=== PATIENT | female | born 1985 | race Caucasian/White ===

== ENCOUNTER 2025-05-11 16:20 | Outpatient (CLI) | payer BC, SELFPAY ==
--- OUTSIDE RECORDS SUMMARY | 2025-05-11 16:24 | XMS_ITS | Clinical Summary ---
Author Organization Healthcare Address [address] [place] [address] Care Team Providers Care Paper Sheeter Name Role Phone Helder Robina Fraire APRN Primary Care Provider Immunizations Immunization Administration Dates Next Due PPD Skin Test (TB Skin Test) 11/19/2006,04/15/20 06 Social History Tobacco Use Types Packs/Day Years Used Date Smoking Tobacco: Never Assessed Comments Unknown Sex and Gender Information Value Date Recorded Sex Assigned at Not on file Legal Sex Female 8:27 PM EDT Gender Identity Not on file Sexual Orientation Not on file Last Filed Vital Signs Vital Sign Reading Time Taken Comments Blood Pressure - - Pulse - - Temperature - - Respiratory Rate - - Oxygen Saturation - - Inhaled Oxygen Concentration - - Weight 81.6 kg (180 lb) 09/17/2023 9:09 AM EST Height 162.6 cm (5' 4 ) 09/17/2023 9:09 AM EST Body Mass Index 30.9 09/17/2023 9:09 AM EST Plan of Treatment Health Maintenance Due Date Last Done Comments [facility]-Depression Screening 1984 [facility]-HIV Screening 1984 [facility]-Hepatitis C Screening 1984 [facility]-Infant/Child/Adol SDOH Screenings 1984 [facility]-Obesity Intervention 1990 [facility]-Varicella Vaccines (1 of 2 - 13+ 2-dose series) 1997 [facility]- SDOH Screenings 2002 [facility]-Adult SDOH Screenings 2002 [facility]-DTaP,Tdap,and Td Vaccine s (1 - Tdap) 2003 [facility]-Hepatitis B Vaccines (1 of 3 - 19+ 3-dose series) 2003 [facility]-Pap Smear 2005 HPV Vaccines (1 - 3-dose SCD M series) 2011 [facility]-Cervical Cancer Screening 2014 [facility]-HPV/Cotest 2014 [id number] Vaccine (1 - 20 24-25 season) 2025 [facility]-Influenza Vaccine (#1) 2025 [facility]-Zoster Vaccines (1 of 2) 2034 [facility]-HIB Vaccines Aged Out No longer e ligible based on patient's age to complete this topic [facility]-Hepatitis A Vaccines Aged Out No longer eligible based on patient's age to complete this topic [facility]-IPV Vaccines Aged Out No longer e ligible based on patient's age to complete this topic [facility]-Pneumococcal Vaccine: Pediatrics (0 to 5 Years) and At-Risk Patients (6 to 49 Years) Aged Out No long er eligible based on patient's age to complete this topic [facility]-Rotavirus Vaccines Aged Out No lo nger eligible based on patient's age to complete this topic Insurance JESSICA Care Teams Paper Sheeter Relationship Specialty Start Date End Date Robina Pendleton APRN [address] [place] [address] PCP - General Family Medicine 09/17/23
--- OUTSIDE RECORDS SUMMARY | 2025-05-11 16:24 | XMS_ITS | Encounter Summary ---
[facility] [address] [place] [address] Care Team Providers Care Peanut Cleaner Name Role Phone Robina Pendleton APRN Primary Care Provider Reason for Visit * Reason Comments Med Refill Encounter Details Date Type Department Care Team (Late st Contact Info) Description 05/04/2025 Refill [facility] FAM[facility] MED[facility]INE [address] [place] [address] Robina Pendleton APRN [address] [place] [address] Attention deficit hyperactivity disorder (ADHD), combined type Social History Tobacco Use Types Packs/Day Years Used Date Smoking Tobacco: Never Smokeless Tobacco: Never Alcohol Use Standard Drinks/Week Comments Not Currently 0 (1 standard drink = 0.6 oz pur e alcohol) Roxana Depression Scale Answer Date Recorded Roxana Depression Scale Total 4 07/10/2021 The thought of harming myself has occurred to me . Never 07/10/2021 Abuse Screen Answer Date Recorded Feels Unsafe at Home or Work/School no 06/11/2024 Feels Threatened by Someone no 05/26 Does Anyone Try to Keep You From Having Contact with Others or Doing Things Outside Your Home? no 06/11/2024 Physical Signs of Abuse Present no 06/11/2024 PHQ-2 Answer Date Recorded Patient Health Questionnaire-2 Score 0 03/03/2025 Comments No Sex and Gender Information Value Date Recorded Sex Assigned at Female 02/25/2025 10:48 PM EDT Legal Sex Female 1:54 PM EDT Gender Identity Not on file Sexual Orientation Not on file Occupation Industry Job Start Date Job End Date TEACHER Not on file Not on file Not on file documented as of this encounter Plan of Treatment Not on file documented as of this encounter Visit Diagnoses Diagnosis Attention deficit hyperactivity disorder (ADHD), combined type documented in this encounter Additional Health Concerns Infection Onset Date Last Indicated Resolved Time 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
--- OUTSIDE RECORDS SUMMARY | 2025-05-11 16:24 | XMS_ITS | Encounter Summary ---
[facility] [address] [place] [address] Care Team Providers Care Contracts Intern Name Role Phone Robina Pendleton APRN Primary Care Provider Reason for Visit * Reason Onset Date Comments [place] 03/04/2025 Encounter Details Date Type Department Care Team (Late st Contact Info) Description 03/04/2025 Telephone [facility] FAM[facility] MEDICINE [address] [place] [address] Robina Pendleton APRN [address] [place] [address] [place] Social History Tobacco Use Types Packs/Day Years Used Date Smoking Tobacco: Never Smokeless Tobacco: Never Alcohol Use Standard Drinks/Week Comments Not Currently 0 (1 standard drink = 0.6 oz pur e alcohol) [place] Depression Scale Answer Date Recorded [place] Depression Scale Total 4 07/10/2021 The thought [...] on file documented as of this encounter Miscellaneous Notes * Telephone Encounter - Stella Alatorre MA - 03/29/2025 11:46 AM EDT APPROVED AND FAXED TO PHARMACY. PT NOTIFIED VIA [employer]. * Telephone Encounter - Stella Alatorre MA - 03/29/2025 11:18 AM EDT [place]: [id number] Sent to Plan Wait for Determination Please wait for [facility] 2017 to return a determination Answered questions. Attached last office note. Pending. * Telephone Encounter - Stella Alatorre MA - 03/04/2025 2:10 PM EDT Insurance requiring [employer] as it's forumlary or documentation of why patient cannot use it. 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
--- OUTSIDE RECORDS SUMMARY | 2025-05-11 16:24 | XMS_ITS | Clinical Summary ---
[facility] Organization [facility] Address [address] [place] [id number] Care Team Providers Care Brake Specialist Name Role Phone Robina Pendleton APRN Primary Care Provider Allergies Active Allergy Reactions Criticality Noted Date Comments Ciprofloxacin Other (See Comments) 06/11/2024 Medications ibuprofen (ADVIL,MOTRIN) 600 MG tablet Take 1 tablet by mouth Every 6 (Six) Hours. 30 tablet 1 1:02 PM EDT 05/27/20 21 Active albuterol sulfate HFA 108 (90 Base) MCG/ACT inhalerIndicatio ns:Acute cough TAKE 2 PUFFS BY MOUTH EVERY 4 HOURS NEEDED FOR WHEEZE 6.7 g 10/17/19 24 Active sertraline (ZOLOFT) 50 MG tabletIndication s:LAVIN (generalized anxiety disorder) Take 1 tablet by mouth Daily. 90 tablet 1 03/03/20 25 Active phentermine (ADIPEX-P) 37.5 MG tabletIndication s:Class 1 obesity without serious comorbidity with body mass index (BMI) of 33.0 to 33.9 in adult, unspecified obesity type Take 1 tablet by mouth Every Morning Before Breakfast. 30 tablet 03/03/20 25 Active Cholecalciferol (Vitamin D3) 1.25 MG (55711 UT) capsuleIndicatio ns:Vitamin D deficiency Take 1 capsule by mouth Every 7 (Seven) Days. 13 capsule 1 03/04/20 25 Active Semaglutide-Weig ht Management (Wegovy) 0.25 MG/0.5ML solution auto-injectorInd ications:Class 1 obesity without serious comorbidity with body mass index (BMI) of 33.0 to 33.9 in adult, unspecified obesity type Inject 0.5 mL under the skin into the appropriate area as directed 1 (One) Time Per Week. 2 mL 03/27/20 Active atomoxetine (STRATTERA) 40 MG capsuleIndicatio ns:Attention deficit hyperactivity disorder (ADHD), combined type TAKE 1 CAPSULE BY MOUTH EVERY DAY 30 capsule 1 05/04/20 25 Active atomoxetine (Strattera) 40 MG capsuleIndicatio ns:Attention deficit hyperactivity disorder (ADHD), combined type Take 1 capsule by mouth Daily. 30 capsule 1 03/03/20 25 2024 Discontinued Active Problems Problem Noted Date Diagnosed Date follow-up 05/29/2021 Previous delivery affecting 0 03/15/2018 Overview (02/01/2021): First for failure to progress Resolved Problems Problem Noted Date Diagnosed Date Resolved Date fever 05/29/2021 05/31/2021 Overview (05/29/2021): Exam negative except for minimal uterine tenderness, we will give a dose of Rocephin today and repeat again in 24 hours if needed 38 weeks gestation of 05/15/2021 05/27/2021 Sterilization consult 05/15/20212020 Overview (05/15/2021): Patient wants tubal sterilization at time of 37 weeks gestation of 05/08/2021 05/15/2021 False labor 05/08/2021 05/27/2021 35 weeks gestation of 04/24/2021 05/08/2021 33 weeks gestation of 04/10/2021 05/08/2021 Pustule 04/10/2021 05/27/2021 Overview (04/10/2021): Pustules under both breasts, treat with Bactroban 27 weeks gestation of 03/01/2021 04/10/2021 23 weeks gestation of 02/01/2021 04/10/2021 Multigravida of advanced mat ernal age in second trimester 01/02/2021 05/27/2021 13 weeks gestation of 11/21/2020 02/01/2021 Previous miscarriage without 10/10/2020 02/01/2021 Missed 05/30/2020 02/01/2021 Missed 05/11/2020 02/01/2021 Overview (05/11/2020): 7-9 week pole Post-dates 06/27/2016 016 Encounters Date Type Department Care Team Description 05/04/2025 Refill [facility] [address] [place] [address] Robina Pendleton APRN Attention deficit hyperactivity disorder (ADHD), combined type 03/04/2025 Results Follow-Up [facility] [address] [place] [address] Robina Pendleton APRN 03/04/2025 Telephone [facility] [address] [place] [address] Robina Pendleton APRN [employer] [place] 03/03/2025 10:00 AM EDT Office Visit [facility] [address] [place] [address] Robina Pendleton APRN Annual physical exam (Primary Dx); ALVIN (generalized anxiety disorder); Liver hemangioma; Class 1 obesity without serious comorbidity with body mass index (BMI) of 33.0 to 33.9 in adult, unspecified obesity type; Attention deficit hyperactivity disorder (ADHD), combined type 03/03/2025 Travel from Last 3 Months Immunizations Immunization Administration Dates Next Due COVID-19 (UNSPECIFIED) 08/26/2021 PPD Test 11/19/2006,04/15/2006 Tdap 03/22/2015,08/26/2014 Tetanus 12/01/1999 Tetanus Toxoid 12/01/1999 Family History Medical History Relation Name Comments No Known Problems Brother No Known Problems Father Liver disease Mother Non-alcoholic fatty liver disease Diabetes type II Other Aunt No Known Problems Sister Relation Name Status Comments Brother Alive Father Alive Mother Alive Other Sister Alive Social History Tobacco Use Types Packs/Day Years Used Date Smoking Tobacco: Never Smokeless Tobacco: Never Alcohol Use Standard Drinks/Week Comments Not Currently 0 (1 standard drink = 0.6 oz pur e alcohol) Swink Depression Scale Answer Date Recorded Swink Depression Scale Total 4 07/10/2021 The thought [...] file Not on file Not on file Last Filed Vital Signs Vital Sign Reading Time Taken Comments Blood Pressure 124/82 03/03/2025 9:51 AM EDT Pulse 72 03/03/2025 9:51 AM EDT Temperature 37.1 C (98.7 F) 03/03/2025 9:51 AM EDT Respiratory Rate 16 03/03/2025 9:51 AM EDT Oxygen Saturation 98% 03/03/2025 9:51 AM EDT Inhaled Oxygen Concentration - - Weight 90.2 kg (198 lb 12.8 oz) 03/03/2025 9:51 AM EDT Height 163 cm (5' 4.17 ) 03/03/2025 9:51 AM EDT Body Mass Index 33.94 03/03/2025 9:51 AM EDT Plan of Treatment Health Maintenance Due Date Last Done Comments Annual Gynecologic Pelvic and Breast Exam 07/11/2022 07/10/2021, 05/30/2020 TDAP/TD VACCINES (3 - Td or Tdap) 03/22/2025 03/22/2015, 08/26/2014 INFLUENZA VACCINE 03/26/2025 COVID-19 Vaccine ( season) 2025 08/26/2021 ANNUAL PHYSICAL 03/03/2026 03/03/2025, 02/19/2023 MAMMOGRAM 11/05/2026 11/05/2024, 10/22/2024 PAP SMEAR 02/04/2028 02/03/2025 (Patient-Reported (Performed Externally)), 07/10/2021, 06/09/2020, Additional history exists HEPATITIS C SCREENING Completed 10/10/2020 Pneumococcal Vaccine 0-49 Aged Out No longer eligible based on patient's age to complete this topic Procedures Procedure Name Priority Date/Time Associated Diagnosis Comments CBC AND DIFFERENTIAL Routine 03/03/2025 10:42 AM EDT ALVIN (generalized anxiety disorder) Class 1 obesity without serious comorbidity with body mass index (BMI) of 33.0 to 33.9 in adult, unspecified obesity type Annual physical exam VITAMIN B12 AND FOLATE Routine 10:42 AM EDT Class 1 obesity without serious comorbidity with body mass index (BMI) of 33.0 to 33.9 in adult, unspecified obesity type Annual physical exam VITAMIN D,25-HYDROXY Routine 03/03/2025 10:42 AM EDT Class 1 obesity without serious comorbidity with body mass index (BMI) of 33.0 to 33.9 in adult, unspecified obesity type Annual physical exam TSH Routine 03/03/2025 10:42 AM EDT Class 1 obesity without serious comorbidity with body mass index (BMI) of 33.0 to 33.9 in adult, unspecified obesity type Annual physical exam T4, FREE Routine 03/03/2025 10:42 AM EDT Class 1 obesity without serious comorbidity with body mass index (BMI) of 33.0 to 33.9 in adult, unspecified obesity type Annual physical exam LIPID PANEL Routine 03/03/2025 10:42 AM EDT Class 1 obesity without serious comorbidity with body mass index (BMI) of 33.0 to 33.9 in adult, unspecified obesity type Annual physical exam HEMOGLOBIN A1C Routine 03/03/2025 10:42 AM EDT Class 1 obesity without serious comorbidity with body mass index (BMI) of 33.0 to 33.9 in adult, unspecified obesity type Annual physical exam COMPREHENSIVE METABOLIC PANEL Routine 03/03/2025 10:42 AM EDT ALVIN (generalized anxiety disorder) Liver hemangioma Class 1 obesity without serious comorbidity with body mass index (BMI) of 33.0 to 33.9 in adult, unspecified obesity type Annual physical exam MAMMO DIAGNOSTIC DIGITAL TOMOSYNTHESIS RIGHT W CAD Routine 11/05/2024 9:18 AM EDT Abnormal mammogram SCANNED - PAP SMEAR 07/10/2021 OBSTETRIC PANEL Routine 10/10/2020 9:48 AM EST Less than 8 weeks gestation of from Last 3 Months or Most Recently Relevant to Health Maintenance Results * Vitamin B12 & Folate (03/03/2025 10:42 AM EDT) Vitamin B-12 499 211 - 946 pg/mL [facility] Comment:Results may be false ly increased if patient taking Biotin. Folate 9.23 4.78 - 24.20 ng/mL [facility] Comment:Results may be false ly increased if patient taking Biotin. Blood 03/03/2025 10:4 2 AM EDT 03/03/2025 Narrative [facility] ([facility]) - 03/04/2025 3:07 AM EDT Performed at: [address] [place] [address] [id number] Sld Teacher: Josh Ugarte MD, Phone: [phone] Patient Fasting: Y us Robina Pendleton APRN LAB BLOOD ORDERABLES Final R esult [facility] ([facility]) [address] [place] [address], [facility] [address] [place] [address], [place] [phone] * (ABNORMAL) Vitamin D,25-Hydroxy (03/03/2025 10:42 AM EDT) [facility] 25 Hydroxy, Vitamin D 28.7(L) 30.0 - 100.0 ng/ml [facility] Comment: Reference Range for Total Vitamin D 25(OH) Deficiency <20.0 ng/mL Insufficiency 21-29 ng/mL Sufficiency 30-100 ng/mL Toxicity >100 ng/ml Blood 03/03/2025 10:4 2 AM EDT 03/03/2025 Narrative [facility] (AMBULATORY) - 03/04/2025 3:07 AM EDT Performed at: [address] [place] [address] [id number] Sld Teacher: Josh Ugarte MD, Phone: [phone] Patient Fasting: Y Robina Pendleton APRN LAB BLOOD ORDERABLES Final R esult [facility] (AMBULATORY) [address] [place] [address], [place] [phone] [facility] [address] [place] [address], [place] [phone] * (ABNORMAL) CBC & Differential (03/03/2025 10:42 AM EDT) [facility] WBC 7.97 3.40 - 10.80 10*3/mm3 [facility] RBC 4.75 3.77 - 5.28 10*6/mm3 [facility] Hemoglobin 13.5 12.0 - 15.9 g/dL [facility] Hematocrit 40.9 34.0 - 46.6 % [facility] MCV 86.1 79.0 - 97.0 fL [facility] MCH 28.4 26.6 - 33.0 pg [facility] MCHC 33.0 31.5 - 35.7 g/dL [facility] RDW 12.9 12.3 - 15.4 % [facility] Platelets 325 140 - 450 10*3/mm3 [facility] Neutrophil Rel % 63.1 42.7 - 76.0 % [facility] Lymphocyte Rel % 25.6 19.6 - 45.3 % [facility] Monocyte Rel % 7.0 5.0 - 12.0 % [facility] Eosinophil Rel % 2.6 0.3 - 6.2 % [facility] Basophil Rel % 0.6 0.0 - 1.5 % [facility] Neutrophils Absolute 5.02 1.70 - 7.00 10*3/mm3 [facility] Lymphocytes Absolute 2.04 0.70 - 3.10 10*3/mm3 [facility] Monocytes Absolute 0.56 0.10 - 0.90 10*3/mm3 [facility] Eosinophils Absolute 0.21 0.00 - 0.40 10*3/mm3 [facility] Basophils Absolute 0.05 0.00 - 0.20 10*3/mm3 [facility] Immature Granulocyte Rel % 1.1(H) 0.0 - 0.5 % [facility] Immature Grans Absolute 0.09(H) 0.00 - 0.05 10*3/mm3 [facility] nRBC 0.0 0.0 - 0.2 /100 WBC [facility] Blood 03/03/2025 10:4 2 AM EDT 03/03/2025 Narrative [facility] ([facility]) - 03/04/2025 3:07 AM EDT Performed at: [address] [place] [address] [id number] Sld Teacher: Josh Ugarte MD, Phone: [phone] Patient Fasting: Y us Robina Pendleton APRN LAB BLOOD ORDERABLES Final R esult [facility] ([facility]) [address] [place] [address], [facility] [address] [place] [address], * TSH (03/03/2025 10:42 AM EDT) [facility] TSH 3.070 0.270 - 4.200 uIU/mL [facility] Blood 03/03/2025 10:4 2 AM EDT 03/03/2025 Narrative [facility] ([facility]) - 03/04/2025 3:07 AM EDT Performed at: [address] [place] [address] [id number] Sld Teacher: Josh Ugarte MD, Phone: [phone] Patient Fasting: Y Robina Pendleton GUN STOCK CHECKER LAB BLOOD ORDERABLES Final R esult Performing Organization Address [facility] de Phone Number [facility] ([facility]) [address] [place] [address], [facility] [address] [place] [address], * (ABNORMAL) T4, Free (03/03/2025 10:42 AM EDT) Free T4 0.86(L) 0.92 - 1.68 ng/dL [facility] Blood 03/03/2025 10:4 2 AM EDT 03/03/2025 Narrative [facility] ([facility]) - 03/04/2025 3:07 AM EDT Performed at: [address] [place] [address] [id number] Sld Teacher: Josh Ugarte MD, Phone: [phone] Patient Fasting: Y Robina Pendleton GUN STOCK CHECKER LAB BLOOD ORDERABLES Final R esult Performing Organization Address [facility] de Phone Number [facility] ([facility]) [address] [place] [address], [facility] [address] [place] [address], * Hemoglobin A1c (03/03/2025 10:42 AM EDT) Hemoglobin A1C 5.30 4.80 - 5.60 % [facility] Comment: Hemoglobin A1C Ranges: Increased Risk for Diabetes 5.7% to 6.4% Diabetes >= 6.5% Diabetic Goal < 7.0% Blood 03/03/2025 10:4 2 AM EDT 03/03/2025 Narrative [facility] ([facility]) - 03/04/2025 3:07 AM EDT Performed at: [address] [place] [address] [place], [place] [id number] Sld Teacher: Josh Ugarte MD, Phone: [phone] Patient Fasting: Y Robina Pendleton APRN LAB BLOOD ORDERABLES Final R esult [facility] ([facility]) [address] [place] [address], [facility] [address] [place] [address], * (ABNORMAL) Lipid Panel (03/03/2025 10:42 AM EDT) [facility] Total Cholesterol 198 0 - 200 mg/dL [facility] Comment: Cholesterol Reference Ranges (U.S. Department of Health and Human Services ATP III Classifications) Desirable <200 mg/dL Borderline High 200-239 mg/dL High Risk >240 mg/dL Triglyceride Reference Ranges (U.S. Department of Health and Human Services ATP III Classifications) Normal <150 mg/dL Borderline High 150-199 mg/dL High 200-499 mg/dL Very High >500 mg/dL HDL Reference Ranges (U.S. Department of Health and Human Services ATP III Classifications) Low <40 mg/dl (major risk factor for CHD) High >60 mg/dl ('negative' risk factor for CHD) LDL Reference Ranges (U.S. Department of Health and Human Services ATP III Classifications) Optimal <100 mg/dL Near Optimal 100-129 mg/dL Borderline High 130-159 mg/dL High 160-189 mg/dL Very High >189 mg/dL LDL is calculated using the NIH LDL-C calculation. Triglycerides 147 0 - 150 mg/dL [facility] HDL Cholesterol 38(L) 40 - 60 mg/dL [facility] VLDL Cholesterol Silver 27 5 - 40 mg/dL [facility] LDL Chol Calc (NIH) 133(H) 0 - 100 mg/dL [facility] Blood 03/03/2025 10:4 2 AM EDT 03/03/2025 Narrative [facility] ([facility]) - 03/04/2025 3:07 AM EDT Performed at: [address] [place] [address] [place] [id number] Sld Teacher: Josh Ugarte MD, Phone: [phone] Patient Fasting: Y Robina Pendleton APRN LAB BLOOD ORDERABLES Final R esult [facility] ([facility]) [address] [place] [address], [facility] [address] [place] [address], * (ABNORMAL) Comprehensive Metabolic Panel (03/03/2025 10:42 AM EDT) [facility] Glucose 86 65 - 99 mg/dL [facility] BUN 6.0 6.0 - 20.0 mg/dL [facility] Creatinine 0.79 0.57 - 1.00 mg/dL [facility] EGFR Result 97.1 >60.0 mL/min/1.7 3 [facility] Comment: GFR Categories in Chronic Kidney Disease (CKD) GFR Category GFR (mL/min/1.73) Interpretation G1 90 or greater Normal or high (1) G2 60-89 Mild decrease (1) G3a 45-59 Mild to moderate decrease G3b 30-44 Moderate to severe decrease G4 15-29 Severe decrease G5 14 or less Kidney failure (1)In the absence of evidence of kidney disease, neither GFR category G1 or G2 fulfill the criteria for CKD. eGFR calculation 2020 CKD-EPI creatinine equation, which does not include race as a factor BUN/Creatinine Ratio 7.6 7.0 - 25.0 [facility] Sodium 138 136 - 145 mmol/L [facility] Potassium 4.2 3.5 - 5.2 mmol/L [facility] Chloride 103 98 - 107 mmol/L [facility] Total CO2 24.6 22.0 - 29.0 mmol/L [facility] Calcium 9.6 8.6 - 10.5 mg/dL [facility] Total Protein 7.4 6.0 - 8.5 g/dL [facility] Albumin 4.3 3.5 - 5.2 g/dL [facility] Globulin 3.1 gm/dL [facility] A/G Ratio 1.4 g/dL [facility] Total Bilirubin 0.6 0.0 - 1.2 mg/dL [facility] Alkaline Phosphatase 89 39 - 117 U/L [facility] AST (SGOT) 57(H) 1 - 32 U/L [facility] ALT (SGPT) 56(H) 1 - 33 U/L [facility] Blood 03/03/2025 10:4 2 AM EDT 03/03/2025 Narrative [facility] ([facility]) - 03/04/2025 3:07 AM EDT Performed at: [address] [place] [address] [id number] Sld Teacher: Josh Ugarte MD, Phone: [phone] Patient Fasting: Y Robina Pendleton APRN LAB BLOOD ORDERABLES Final R esult [facility] ([facility]) [address] [place] [id number], [facility] [address] [place] [address], * Mammo Diagnostic Digital Tomosynthesis Right With CAD (11/05/2024 9:18 AM EDT) Anatomical Region Laterality Modality Breast Right Mammography 11/05/2024 9:44 AM EDT Impressions 11/05/2024 9:45 AM EDT BI-RADS 2, benign findings. RECOMMENDATION: Annual routine screening mammography is advised. The standard false-negative rate of mammography is between 10% and 25%. Complex patterns or increased breast density will markedly elevate the false-negative rate of mammography. A results letter, in lay terminology, will be given to the patient at the conclusion of the exam. 11/05/2024 9:[address] Benito Pyle MD on Narrative 11/05/2024 9:45 AM EDT EXAMINATION:MAMMO DIAGNOSTIC DIGITAL TOMOSYNTHESIS RIGHT W CAD-, US BREAST RIGHT LIMITED- HISTORY: 39-year-old female with a mass in the right breast on screening mammography. Further evaluation. TECHNIQUE: Right 2D and 3D ML, spot compression MLO, spot compression cc views were obtained. CAD was utilized. Targeted right breast ultrasound was performed. COMPARISON: 10/22/2024. FINDINGS: There are scattered areas of fibroglandular density. A mass is noted in the right breast at 11:00, 3 cm from the nipple, which corresponds with the screening mammographic finding. Otherwise, no worrisome masses, calcifications, or architectural distortion is identified in the right breast. Targeted right breast ultrasound was performed at 11:00, 3 cm from the nipple, demonstrating an 8 x 3 x 5 mm cyst which is in continuity with the duct. No internal vascularity or suspicious features are noted. This corresponds with the mammographic finding. Ora Jacobson MD [facility] MAMMOGRAPHY ORDERABLES Final Result * SCANNED - PAP SMEAR (07/10/2021) Bobby Madrid MD CHART REVIEW TABS Final Result * (ABNORMAL) Obstetric Panel (10/10/2020 9:48 AM EST) Hepatitis B Surface Ag Negative Negative [facility] Hep C Virus Ab <0.1 0.0 - 0.9 s/co ratio [facility] Comment: Negative: < 0.8 Indeterminate: 0.8 - 0.9 Positive: > 0.9 The CDC recommends that a positive HCV antibody result be followed up with a HCV Nucleic Acid Amplification test (045145). RPR Non Reactive Non Reactive [facility] Rubella Antibodies, IgG 4.26 Immune >0.99 index [facility] Comment: Non-immune <0.90 Equivocal 0.90 - 0.99 Immune >0.99 ABO Type O [facility] Rh Factor Positive [facility] Comment: Please note: Prior records for this patient's ABO / Rh type are not available for additional verification. Antibody Screen Negative Negative [facility] WBC 11.1(H) 3.4 - 10.8 x10E3/uL [facility] RBC 4.49 3.77 - 5.28 x10E6/uL [facility] Hemoglobin 13.1 11.1 - 15.9 g/dL [facility] Hematocrit 38.9 34.0 - 46.6 % [facility] MCV 87 79 - 97 fL [facility] MCH 29.2 26.6 - 33.0 pg [facility] MCHC 33.7 31.5 - 35.7 g/dL [facility] RDW 13.1 11.7 - 15.4 % [facility] Platelets 307 150 - 450 x10E3/uL [facility] Neutrophil Rel % 75 Not Estab. % [facility] Lymphocyte Rel % 17 Not Estab. % [facility] Monocyte Rel % 5 Not Estab. % [facility] Eosinophil Rel % 1 Not Estab. % [facility] Basophil Rel % 1 Not Estab. % [facility] Neutrophils Absolute 8.5(H) 1.4 - 7.0 x10E3/uL [facility] Lymphocytes Absolute 1.9 0.7 - 3.1 x10E3/uL [facility] Monocytes Absolute 0.6 0.1 - 0.9 x10E3/uL [facility] Eosinophils Absolute 0.1 0.0 - 0.4 x10E3/uL [facility] Basophils Absolute 0.1 0.0 - 0.2 x10E3/uL [facility] Immature Granulocyte Rel % 1 Not Estab. 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 03/29/2021 Insurance [employer] Advance Directives * CPR (Attempt to Resuscitate) (Latest Code Status on File) Date Activated Date Inactivated Comments 05/25/2021 12:01 PM 05/27/2021 4:59 PM Question Answer Comments Code Status (Patient has no pulse and is not breathing): CPR (Attempt to Resuscitate) Medical Interventions (Patie nt has pulse or is breathing): Full * CPR (Attempt to Resuscitate) Date Activated Date Inactivated Comments 05/25/2021 7:39 AM 05/25/2021 12:01 PM Question Answer Comments Code Status (Patient has no pulse and is not breathing): CPR (Attempt to Resuscitate) Medical Interventions (Patie nt has pulse or is breathing): Full Level Of Support Discussed With: Patient * CPR (Attempt to Resuscitate) Date Activated Date Inactivated Comments 03/15/2018 9:01 PM 03/18/2018 3:54 PM Question Answer Comments Code Status (Patient has no pulse and is not breathing): CPR (Attempt to Resuscitate) Medical Interventions (Patie nt has pulse or is breathing): Full * CPR (Attempt to Resuscitate) Date Activated Date Inactivated Comments 03/15/2018 5:19 AM 03/15/2018 9:01 PM Question Answer Comments Code Status (Patient has no pulse and is not breathing): CPR (Attempt to Resuscitate) Medical Interventions (Patie nt has pulse or is breathing): Full * Full Code Date Activated Date Inactivated Comments 06/28/2016 12:17 AM 06/30/2016 2:12 PM Care Teams Brake Specialist Relationship Specialty Start Date End Date Robina Pendleton APRN [address] [place] [address] PCP - General Nurse Practitioner 09/20/23
== END 2025-05-11 23:59 | disposition home or self-care (01) ==
LOC: LAB 16:22
PROVIDERS: PCP Nurse Practitioner Family; Visit Provider Internal Medicine Gastroenterology
DX: K74.69 Other cirrhosis of liver (principal); B19.20 Unspecified viral hepatitis C without hepatic coma; R74.01 Elevation of levels of liver transaminase levels

== ENCOUNTER 2025-05-12 07:26 | Outpatient (CLI) | payer BC, SELFPAY ==
--- OUTSIDE RECORDS SUMMARY | 2025-05-12 07:30 | XMS_ITS | Clinical Summary ---
[facility] Address [address] [place] [id number] Care Team Providers Care Mold Sprayer Name Role Phone Robina Pendleton APRN Primary Care Provider [phone] Allergies Active Allergy Reactions Criticality Noted Date [...] 24 Active sertraline (ZOLOFT) 50 MG tabletIndication s:ALVIN (generalized anxiety disorder) Take 1 tablet by mouth Daily. 90 tablet 1 03/03/20 25 Active phentermine (ADIPEX-P) 37.5 MG tabletIndication s:Class 1 obesity without serious comorbidity with body mass index (BMI) of 33.0 to 33.9 in adult, unspecified obesity type Take 1 tablet by mouth Every Morning Before Breakfast. 30 tablet 03/03/20 25 Active Cholecalciferol (Vitamin D3) 1.25 MG (66876 UT) capsuleIndicatio ns:Vitamin D deficiency Take 1 [...] Type Department Care Team Description 05/04/2025 Refill [facility] [address] [place] [address] Robina Pendleton APRN Attention deficit hyperactivity disorder (ADHD), combined type 03/04/2025 Results Follow-Up [facility] [address] [place] [address] Robina Pendleton APRN 03/04/2025 Telephone [facility] [address] [address] Robina Pendleton APRN [place] 03/03/2025 10:00 AM EDT Office Visit [facility] [address] [address] Robina Pendleton APRN Annual physical exam (Primary [...] drink = 0.6 oz pur e alcohol) Dalton Depression Scale Answer Date Recorded [place] Depression Scale Total 4 07/10/2021 The thought [...] - 03/04/2025 3:07 AM EDT Performed at: [address] [place] [address] [id number] Thermoscrew Operator: Josh Ugarte MD, Phone: [phone] Patient Fasting: Y us Robina Pendleton APRN LAB BLOOD ORDERABLES Final R esult [facility] ([facility]BULATORY) [address] [place] [address], [facility] [address] [place] [address], [place] [phone] * (ABNORMAL) Vitamin D,25-Hydroxy (03/03/2025 10:42 AM EDT) [facility] 25 Hydroxy, Vitamin D 28.7(L) 30.0 - 100.0 ng/ml [facility] Comment: Reference Range for Total Vitamin D 25(OH) Deficiency <20.0 ng/mL Insufficiency 21-29 ng/mL Sufficiency 30-100 ng/mL Toxicity >100 ng/ml Blood 03/03/2025 10:4 2 AM EDT 03/03/[address] [facility] (AMBULATORY) - 03/04/2025 3:07 AM EDT Performed at: [address] [place] [address] [id number] Thermoscrew Operator: Josh Ugarte MD, Phone: [phone] Patient Fasting: Y Robina Pendleton APRN LAB BLOOD ORDERABLES Final R esult [facility] (AMBULATORY) [address] [place] [address], [place] [phone] [facility] [address] [place] [address], [place] [phone] * (ABNORMAL) CBC & Differential (03/03/2025 10:42 AM EDT) [facility] WBC 7.97 3.40 - 10.80 10*3/mm3 [facility] [...] - 03/04/2025 3:07 AM EDT Performed at: [address] [place] [address] [id number] Thermoscrew Operator: Josh Ugarte MD, Phone: [phone] Patient Fasting: Y us Robina Pendleton APRN LAB BLOOD ORDERABLES Final R esult [facility] ([facility]UL[facility]) [address] [place] [address], [facility] [address] [place] [address], * TSH (03/03/2025 10:42 AM EDT) [facility] TSH 3.070 0.270 - 4.200 uIU/mL [facility] Blood 03/03/2025 10:4 2 AM EDT 03/03/2025 Narrative [facility] ([facility]UL[facility]) - 03/04/2025 3:07 AM EDT Performed at: [address] [place] [address] [id number] Thermoscrew Operator: Josh Ugarte MD, Phone: [phone] Patient Fasting: Y Robina Pendleton BEFORE SCHOOL LAB BLOOD ORDERABLES Final R esult Performing Organization Address [facility] de Phone Number [facility] ([facility]BULAT[facility]) [address] [place] [address], [facility] [address] [place] [address], * (ABNORMAL) T4, Free (03/03/2025 10:42 AM EDT) Free T4 0.86(L) 0.92 - 1.68 ng/dL [facility] Blood 03/03/2025 10:4 2 AM EDT 03/03/2025 Narrative [facility] ([facility]UL[facility]) - 03/04/2025 3:07 AM EDT Performed at: [address] [place] [address] [id number] Thermoscrew Operator: Josh Ugarte MD, Phone: [phone] Patient Fasting: Y Robina Pendleton BEFORE SCHOOL LAB BLOOD ORDERABLES Final R esult Performing Organization Address [facility] Co de Phone Number [facility] (AMBUL[facility]) [address] [place] [address], [facility] [address] [place] [address], * Hemoglobin A1c (03/03/2025 10:42 AM EDT) Hemoglobin A1C 5.30 4.80 - 5.60 % [facility] Comment: Hemoglobin A1C Ranges: Increased Risk for Diabetes 5.7% to 6.4% Diabetes >= 6.5% Diabetic Goal < 7.0% Blood 03/03/2025 10:4 2 AM EDT 03/03/2025 Narrative [facility] ([facility]) - 03/04/2025 3:07 AM EDT Performed at: [address] [place] [address] [place] [id number] Thermoscrew Operator: Josh Ugarte MD, Phone: [phone] Patient Fasting: Y Robnia Pendleton APRN LAB BLOOD ORDERABLES Final R esult [facility] ([facility]) [address] [place] [address], [facility] [address] [place] [address], * (ABNORMAL) Lipid Panel (03/03/2025 10:42 AM EDT) [facility] Total Cholesterol 198 0 - 200 mg/dL [...] - 03/04/2025 3:07 AM EDT Performed at: [address] [place] [address] [place] [id number] Thermoscrew Operator: Josh Ugarte MD, Phone: [phone] Patient Fasting: Y Robina Pendleton APRN LAB BLOOD ORDERABLES Final R esult [facility] ([facility]) [address] [place] [address], [facility] [address] [place] [address], * (ABNORMAL) Comprehensive Metabolic Panel (03/03/2025 10:42 AM EDT) [facility] Glucose 86 65 - 99 mg/dL [facility] [...] - 03/04/2025 3:07 AM EDT Performed at: [address] [place] [address] [id number] Thermoscrew Operator: Josh Ugarte MD, Phone: [phone] Patient Fasting: Y Robina Pendleton APRN LAB BLOOD ORDERABLES Final R esult [facility] ([facility]) [address] [place] [id number], [facility] [address] [place] [address], * Mammo Diagnostic Digital Tomosynthesis Right With [...] with the mammographic finding. Ora Jacobson MD [facility] MAMMOGRAPHY ORDERABLES Final Result * [...] with a HCV Nucleic Acid Amplification test ([id number]). 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
--- OUTSIDE RECORDS SUMMARY | 2025-05-12 07:30 | XMS_ITS | Clinical Summary ---
Author Organization Healthcare Address [address] [place] [address] Care Team Providers Care Vc++ Developer Name Role Phone Helder Robina Fraire APRN [...] 2011 [facility]-Cervical Cancer Screening 2014 [facility]-HPV/Cotest 2014 AAV-UVSBZ-13 Vaccine (1 - 20 24-25 season) 2025 [...] complete this topic Insurance JESSICA Care Teams Vc++ Developer Relationship Specialty Start Date End Date Robina Pendleton APRN [address] [place] [address] PCP - General Family Medicine 09/17/23
--- OUTSIDE RECORDS SUMMARY | 2025-05-12 07:30 | XMS_ITS | Encounter Summary ---
Author Organization [facility] Address [address] [place] [address] Care Team Providers Care Silverware Cleaner Name Role Phone Robina Pendleton APRN Primary Care Provider Reason for Visit * Reason Comments Med Refill Encounter Details Date Type Department Care Team (Late st Contact Info) Description 05/04/2025 Refill [facility] [address] [place] [address] Robina Pendleton APRN [address] [place] [address] Attention deficit hyperactivity disorder (ADHD), combined type Social History Tobacco Use Types Packs/Day Years Used Date Smoking Tobacco: Never Smokeless Tobacco: Never Alcohol Use Standard Drinks/Week Comments Not Currently 0 (1 standard drink = 0.6 oz pur e alcohol) [place] Depression Scale Answer Date Recorded [place] Depression Scale Total 4 07/10/2021 The thought [...] documented as of this encounter Care Teams Silverware Cleaner Relationship Specialty Start Date End Date Robina Pendleton APRN [address] [place] [address] PCP - General Nurse Practitioner 09/20/23 documented as of this encounter
--- OUTSIDE RECORDS SUMMARY | 2025-05-12 07:30 | XMS_ITS | Patient Health Record ---
Author Organization [facility] Address [address] [facility] [address] [place] [address] Care Team Providers Care Sales Manager Prearranged Funerals Name Role Phone Robina Glez Unavailable [phone] Leonor Freed Unavailable [phone] Allergies No Known Allergies Results Component Value Reference Range Notes Pap w/reflex HPV Reviewed date:02/10/2025 12:14:41 PM Interpretation:Normal Performing Lab:[facility] [place] CLIA ID [id number], [address] [facility], [address], [place] [address], Director - Regan Yuen MD Notes/Report: Any Nucleic Acid Amplification testing is performed on the [employer] [place]. Diagnosis: Negative for intraepithelial lesion or malignancy. AP results Collection Technique: [place] only Satisfactory for interpretation with endocervical/transform ation zone component absent. Social Service Assistant DIAGNOSIS: Results of Last Pap: negative Date of Last Pap: Not provided Specimen Type: ThinPrep CPT Codes: 26895 Specimen Adequacy: Recommendation: Follow-up based on current clinical guidelines and/or clinical consideration. Other Gynecological Patient Information: Not provided Negative Educational Note: The pap screening test aids in the detection of premalignant and malignant states of the cervix. False positive and negative results may occur. It is not a diagnostic test. If abnormal cells are reported, follow-up based on current clinical guidelines and/or clinical consideration is recommended. FINAL ELECTRICIAN SOUND CYTOLOGY REPORT ICD Codes: Z01.419 Negative for intraepithelial lesion or malignancy. Pertinent Clinical History/History of Surgery: none Specimen Source: Cervical/Endocervical LMP: unknown Screening note: This specimen has been analyzed by the [employer] System, an interactive computer system which assists the lab in screening of ThinPrep Pap Test slides. Following imaging, the slide was reviewed by a Social Service Assistant and/or Pathologist. Corazon Patel MAMMO SCREENING DIGITAL NERY SYNTHESIS BILATERAL W CAD Reviewed date:10/28/2024 02:54:38 PM Interpretation:BIRAD 0 Incomplete, additional views necessary Performing Lab: Notes/Report: DIGITAL SCREENING MAMMOGRAM WITH TOMOSYNTHESIS HISTORY: Screening Mammography. Baseline mammogram in a 39-year-old female with no family history or personal history of breast or ovarian cancer. Low dose full field digital breast tomosynthesis imaging was performed with 2D and 3D acquisitions consisting of bilateral CC and MLO views. . Examination is read in conjunction with computer aided detection. FINDINGS: There are scattered areas of fibroglandular density. No suspicious masses microcalcifications or areas of architectural distortion are identified in the left breast. No suspicious microcalcifications or areas of architectural distortion are identified in the right breast. A mass is identified in the upper outer quadrant of the right breast. Impression: BI-RADS 0 Incomplete: NEED ADDITIONAL IMAGING EVALUATION Recommendation: The patient needs additional imaging. Nipple in profile combination 2D 3D right CC and right MLO spot compression views nipple in profile combination 2D 3D right 90 degree lateral view.. She will be contacted by our office to schedule an appointment for the additional studies. Please accept this as an order. CAD was utilized. The standard false-negative rate of mammography is between 10% and 25%. Complex patterns or increased breast density will markedly elevate the false-negative rate of mammography. A letter, in lay terminology, with the results of this exam will be mailed to the patient. Physician Order Diagnostic Mammogram with Breast Ultrasound if needed. Diagnosis: Abnormal Mammogram 10/28/2024 2:[address] Ora Jacobson MD on Signed by: Ora Jacobson on 10/28/2024 2:12 PM Baseline, no probs Reason for Exam:->[id number] Reason For Referral No Information Medications Medication SIG (Take, Route, Frequency, Duration) Notes Start Date End Date Status Sertraline HCl 50 MG Tablet Oral; Duration: 90 Days Acti ve Clindamycin Phosphate 1 % Lotion 1 application Externally Twice a day 02/03/2025 Active Immunizations Vaccine Route Administration Date Status Comme nts SARS-COV-2 Unknown 08/26/2021 Administered 2021 Tdap Unknown 08/26/2014 Administered 2014 Social History Tobacco Use: Social History Observation Description Date Details (start date - stop date) Never Smoker NA - NA Sex Assigned At : Social History Observation Description Sex Assigned At Female Social History Drugs/Alcohol: Social Info Question Answer Notes Drugs Have you used drugs other than those for medical reasons in the past 12 months? No Alcohol Screen Did you have a drink containing alcohol in the past year? Yes How often did you have a drink containing alcohol in the past year? Monthly or less (1 point) Points 1 Interpretation Negative Tobacco Use: Social Info Question Answer Notes Tobacco Use/Smoking Are you a nonsmoker Additional Details Category Social Info Options Details Miscellaneous: Domestic violence: No Section Notes: Do you have any lutheran or culture customs that your provider should know about?: No Do you now or have you ever smoked or used tobacco products?: No Have you ever used any recreational drugs?: No Have you had a drink containing alcohol in the last year?: Yes How often did you have a drink containing alcohol in the last year?: Less than monthly Would you object to blood products in the event of an emergency?: No Do you have any lutheran or culture customs that your provider should know about?: No Do you now or have you ever smoked or used tobacco products?: No Have you ever used any recreational drugs?: No Have you had a drink containing alcohol in the last year?: Yes How often did you have a drink containing alcohol in the last year?: Less than monthly Would you object to blood products in the event of an emergency?: No Do you have any lutheran or culture customs that your provider should know about?: No Do you now or have you ever smoked or used tobacco products?: No Have you ever used any recreational drugs?: No Have you had a drink containing alcohol in the last year?: Yes How often did you have a drink containing alcohol in the last year?: Less than monthly Would you object to blood products in the event of an emergency?: No Do you have any lutheran or culture customs that your provider should know about?: No Do you now or have you ever smoked or used tobacco products?: No Have you ever used any recreational drugs?: No Have you had a drink containing alcohol in the last year?: Yes How often did you have a drink containing alcohol in the last year?: Less than monthly Would you object to blood products in the event of an emergency?: No Vital Signs Blood pressure diastolic 86 mm Hg 02/03/2025 Height 64 in 02/03/2025 Blood pressure systolic 122 mm Hg 02/03/2025 Weight 199.8 lbs 02/03/2025 BMI 34.29 kg/m2 02/03/2025 Encounters Encounter Location Date Provider Diagnosis [facility] [address] [facility] [address] [place] [address] 10/12/2024 [facility] [address] [place] [address] 10/13/2024 [facility] [address] [facility] [address] [place] [address] 10/13/2024 [facility] [address] [facility] [address] [place] [address] 02/03/2025 [facility] Yield Improvement Engineer exam without abnormal findings Z01.419 Assessments Encounter Date Diagnosis (ICD Code) Assessment Notes Treatment Notes Treatment Clinical Notes Section Notes 02/03/2025 Yield Improvement Engineer exam without abnormal findings (ICD-10 - Z01.419) - normal annual exam - recommend annual screening MMG - pap completed - rx topical clindamycin - RTC for annual or PRN Plan Of Treatment Next Appt Details Provider Name:Leonor Freed, 02/09/2026 08:45:00 AM, [address], [place], [address], Insurance Providers Payer Name Payer Address Payer Phone Subscriber Number Group Number Insured Name Patient Relationship to Insured Coverage Start Date Coverage End Date Guillaume HOLLANDO [address] [place] [address] [id number] [address] Segundo Self - patient is the insured Medical (General) History Medical History History ICD Code Abnormal paps/ HPV in the past Anxiety Kidney Stones Surgical History Surgery Date(Month/Year) tubal ligation
--- OUTSIDE RECORDS SUMMARY | 2025-05-12 07:30 | XMS_ITS | Encounter Summary ---
[facility] Address [address] [place] [address] Care Team Providers Care Board Of Directors Name Role Phone Robina Pendleton APRN Primary Care Provider Reason for Visit * Reason Onset Date Comments [place] 03/04/2025 Encounter Details Date Type Department Care Team (Late st Contact Info) Description 03/04/2025 Telephone [facility] [address] [place] [address] Robina Pendleton APRN [address] [place] [address] [place] Social History Tobacco Use Types Packs/Day Years Used Date Smoking Tobacco: Never Smokeless Tobacco: Never Alcohol Use Standard Drinks/Week Comments Not Currently 0 (1 standard drink = 0.6 oz pur e alcohol) [place] Depression Scale Answer Date Recorded [place] Depression Scale Total 4 07/10/2021 The thought [...] encounter Miscellaneous Notes * Telephone Encounter - Stlela Alatorre MA - 03/29/2025 11:46 AM EDT APPROVED AND FAXED TO PHARMACY. PT NOTIFIED VIA [employer]. * Telephone Encounter - Stella Alatorre MA - 03/29/2025 11:18 AM EDT Agudelo: [id number] Sent to Plan Wait for Determination Please wait for [facility] 2017 to return a determination Answered questions. [...] documented as of this encounter Care Teams Board Of Directors Relationship Specialty Start Date End Date Robina Pendleton APRN [address] [place] [address] PCP - General Nurse Practitioner 09/20/23 documented as of this encounter
[2025-05-12 07:45] LABS: Hematocrit 38.8 % (37.0-47.0); Hemoglobin 13.0 g/dL (12.2-16.2); Immature Granulocytes % 1.2 %; Mean Corpuscular HGB Conc 33.5 g/dL (31.8-35.4); Mean Corpuscular Hemoglobin 28.9 pg (27.0-31.2); Mean Corpuscular Volume 86.2 fl (81-99); Nucleated Red Blood Cells % 0 %; Platelet Count 274 K/mm3 (142-424); Red Blood Count 4.50 M/mm3 (4.20-5.40); Red Cell Distribution Width-SD 40.6 fL; White Blood Count 7.7 K/mm3 (4.8-10.8)
[2025-05-15 04:12] LABS: ALT (SGPT) P5P 76 IU/L (0-40); AST (SGOT) P5P 79 IU/L (0-40); Alpha 2-Macroglobulins, Qn 153 mg/dL (110-276); Bilirubin, Total 0.4 mg/dL (0.0-1.2); Cholesterol, Total 198 mg/dL (100-199); GGT 29 IU/L (0-60); Glucose 96 mg/dL (70-99); Triglycerides 139 mg/dL (0-149)
== END 2025-05-12 23:59 | disposition home or self-care (01) ==
PROVIDERS: PCP Nurse Practitioner Family; Visit Provider Internal Medicine Gastroenterology
DX: B19.20 Unspecified viral hepatitis C without hepatic coma (principal); R74.01 Elevation of levels of liver transaminase levels; K76.0 Fatty (change of) liver, not elsewhere classified; K74.69 Other cirrhosis of liver
CPT/HCPCS: 36415; 82172; 82247; 82465; 82947; 82977; 83010; 83521; 84450; 84460; 84478; 85025